=== PATIENT | female | born 1945 | race Caucasian/White ===

== ENCOUNTER 2020-04-02 00:24 | Outpatient (CLI) | payer MEDICARE, SELFPAY ==
[2020-04-02 17:08] LABS: SARS-CoV-2 RNA PCR Negative
== END 2020-04-02 00:25 | disposition home or self-care (01) ==
LOC: ANHCOVIDDT 00:25
PROVIDERS: PCP Internal Medicine; Visit Provider Internal Medicine Gastroenterology
DX: Z01.812 Encounter for preprocedural laboratory examination (principal); Z11.59 Encounter for screening for other viral diseases
CPT/HCPCS: 87635; C9803; U0003

== ENCOUNTER 2020-04-05 01:07 | Day surgery (SDC) | payer MEDICARE, SELFPAY ==
[2020-03-24 14:02] VITALS: BMI 26.4
[2020-04-05 09:46] VITALS: BP 147/87; PULSE 88; RESP 16; TEMP 37; O2SAT 98
--- NOTE | 2020-04-05 10:00 | P.HP_ITS ---
History of Present Illness History of Present Illness Consent: Risks, benefits, and alternatives have been discussed and questions answered. Patient agrees to proceed with procedure. Chief complaint: Neoplasm Screening Narrative: Kaye Erazo is a 75 year old W female referred for screening colonoscopy. Patient is asymptomatic. Last colonoscopy was 10 years ago. No family history of colon cancer. [facility], [facility] Past Medical History Medical History (Updated 04/05/20 @ 10:00 by Zain Jason MD) Dyslipidemia Surgical History Surgical History (Updated 04/05/20 @ 10:01 by Zain Jason MD) H/O total hysterectomy with bilateral salpingo-oophorectomy (BSO) History of tonsillectomy and adenoidectomy Hx of cholecystectomy Social History Social History Smoking status: Never smoker Living arrangements: with family Gender identity (if verbalized by the patient): Female Spiritual care concerns: No Meds Home Medications and Allergies Home Medications Medication Instructions Recorded Confirmed Type fexofenadine [Rosario Allergy] 180 mg PO DAILY 03/24/20 04/05/20 History lactobacillus combination no.8 3 cell PO DAILY 03/24/20 04/05/20 History [Adult Probiotic] montelukast 10 mg PO DAILY 03/24/20 04/05/20 History omeprazole 20 mg PO DAILY 03/24/20 04/05/20 History pravastatin 40 mg PO DAILY 03/24/20 04/05/20 History sertraline 50 mg PO DAILY 03/24/20 04/05/20 History Allergies Allergy/AdvReac Type Severity Reaction Status Date / Time tetracycline Allergy Swelling Verified 04/05/20 09:45 Vital Signs Vital Signs - 24 hr 04/05/20 09:46 Temperature 37.0 C Pulse Rate 88 Respiratory Rate 16 Blood Pressure 147/87 H Pulse Oximetry 98 Exam Const: Orientation/consciousness: patient oriented x3 Resp: Auscultation: clear to auscultation bilaterally Cardio: Rate: regular rate Rhythm: regular rhythm Heart sounds: no murmurs GI: GI Palp: Yes Soft to palpation, No Tenderness to palpation present (GI), Yes No hepatosplenomegaly present and No Palpable mass present Auscultation: normal bowel sounds Neuro: General: patient oriented x3 and no focal motor deficits Extrem: General: no pedal edema Assessment and Plan Additional Plan screening colonoscopy in average risk patient
[2020-04-05] MEDS: LACTATED RINGERS 1,000 ML 150 ML IV CONT (10:06)
--- NOTE | 2020-04-05 10:08 | WPDANESEPPF ---
Anes - Initial Pre Proc Eval Procedure: Operation Date: 04/05/20 11:00 Proposed Procedures p Screening Colonoscopy - Zain Jason MD Date/Time: 04/05/20 10:08 Surgeon: Zain Jason MD Pre Op Diagnosis: Neoplasm Screening Patient Data Age: 75 Gender: F Height: 5 ft 4 in Weight: 70.7 kg Last Vital Signs Temp 98.6 F 04/05/20 09:46 Pulse 88 04/05/20 09:46 Resp 16 04/05/20 09:46 BP 147/87 H 04/05/20 09:46 Pulse Ox 98 04/05/20 09:46 Allergies Allergy/AdvReac Type Severity Reaction Status Date / Time tetracycline Allergy Swelling Verified 04/05/20 09:45 Home Medications Medication Instructions Recorded Confirmed Type fexofenadine [Rosario Allergy] 180 mg PO DAILY 03/24/20 04/05/20 History lactobacillus combination no.8 3 cell PO DAILY 03/24/20 04/05/20 History [Adult Probiotic] montelukast 10 mg PO DAILY 03/24/20 04/05/20 History omeprazole 20 mg PO DAILY 03/24/20 04/05/20 History pravastatin 40 mg PO DAILY 03/24/20 04/05/20 History sertraline 50 mg PO DAILY 03/24/20 04/05/20 History Patient hx anesthesia problems: none Family hx anesthesia problems: none PMFSH Past Medical History Medical History (Updated 04/05/20 @ 10:08 by Mega Chen MD) Anxiety Dyslipidemia Surgical History Surgical History (Updated 04/05/20 @ 10:01 by Zain Jason MD) H/O total hysterectomy with bilateral salpingo-oophorectomy (BSO) History of tonsillectomy and adenoidectomy Hx of cholecystectomy Social History Social History Smoking status: Never smoker Living arrangements: with family Gender identity (if verbalized by the patient): Female Spiritual care concerns: No Anes - Eval Final PreProcedure Day of Procedure 04/05/20 10:08 Patient weight: normal Heart: regular rate and rhythm Lungs: clear to auscultation Airway: Mallampati scale class II Neurological: alert and oriented Last oral intake: >/= 8 hours ASA classification: II Emergent: no Anesthetic plan: proceed Anesthesia type and monitoring: general GIVS and standard monitoring Informed Consent: The patient's anesthetic plan and its attendant risks and benefits were discussed with the patient/family/POA. Questions were solicited and answers provided to the satisfaction of the patient/family/POA.
[2020-04-05] MEDS: SIMETHICONE ORAL SUSPENSION 20 MG/0.3 ML 30 ML BOTTLE 0.6 ML IRRIGATION (11:54)
[2020-04-05 12:00] VITALS: BP 115/63; PULSE 67; RESP 16; O2SAT 98
[2020-04-05 12:10] VITALS: BP 103/77; PULSE 69; RESP 17; O2SAT 98
[2020-04-05 12:20] VITALS: BP 114/76; PULSE 70; RESP 17; O2SAT 98
== END 2020-04-05 13:15 | disposition home or self-care (01) ==
PROVIDERS: PCP Internal Medicine; Visit Provider Internal Medicine Gastroenterology
PROC: 0DJD8ZZ Inspection of Lower Intestinal Tract, Via Natural or Artificial Opening Endoscopic (ICD-10-PCS; CPT 45378; principal; 2020-04-05 11:00)
DX: Z12.11 Encounter for screening for malignant neoplasm of colon (principal); K63.5 Polyp of colon; K57.30 Diverticulosis of large intestine without perforation or abscess without bleeding; K64.8 Other hemorrhoids; K64.4 Residual hemorrhoidal skin tags; E78.5 Hyperlipidemia, unspecified; F41.9 Anxiety disorder, unspecified
CPT/HCPCS: 45385; 88305; J2704; J7120

== ENCOUNTER 2020-05-15 08:26 | Outpatient (CLI) | payer MEDICARE, SELFPAY ==
--- NOTE | ~2020-05-15 | MM_ITS ---
EXAMINATION: MM screening uli BI w romeo HISTORY: Screening TECHNIQUE: Craniocaudal and mediolateral oblique 3-D tomosynthesis images were obtained and synthetic 2-D images were generated. CAD analysis was submitted and interpreted. COMPARISON: Comparison to multiple prior studies sequentially, with oldest reviewed study dated 03/09. BREAST PARENCHYMAL COMPOSITION: There are scattered areas of fibroglandular density. FINDINGS: There is no evidence of suspicious mass, calcification, or architectural distortion to sugg est malignancy in either breast. There has been no suspicious interval change. IMPRESSION: 1. No mammographic evidence of malignancy. 2. Recommend routine screening mammography in one year. BI-RADS Category 1: Negative Reviewed, dictated and finalized at location A. [facility]
== END 2020-05-15 08:27 | disposition home or self-care (01) ==
LOC: ANHIMG 08:30
PROVIDERS: PCP Internal Medicine; Visit Provider Internal Medicine
DX: Z12.31 Encounter for screening mammogram for malignant neoplasm of breast (principal)
CPT/HCPCS: 77063; 77067

== ENCOUNTER 2021-11-09 00:52 | Day surgery (SDC) | payer MEDICARE, SELFPAY ==
[2021-10-27 13:06] VITALS: BMI 27.2
--- NOTE | 2021-11-08 17:09 | PM.HPGS ---
History of Present Illness History of Present Illness Consent: Risks, benefits, and alternatives have been discussed and questions answered. Patient agrees to proceed with procedure. Chief complaint: hx of colon polyps Narrative: Kaye Erazo is a 76 year old female Referred for colon cancer screening. She has a history of polyps having had 2 polyps removed about 2 years ago, 1 of which apparently had dysplastic changes. Review of Systems Review of Systems: All systems reviewed & are unremarkable except as noted in HPI and below PMFSH Past Medical History Medical History Anxiety Dyslipidemia Surgical History Surgical History H/O total hysterectomy with bilateral salpingo-oophorectomy (BSO) History of tonsillectomy and adenoidectomy Hx of cholecystectomy Social History Social History Smoking status: Never smoker Alcohol intake: current Alcohol use details: occasional Living arrangements: with family Gender identity (if verbalized by the patient): Female Spiritual care concerns: No Meds Home Medications and Allergies Home Medications Medication Instructions Recorded Confirmed Type omeprazole 20 mg PO DAILY 03/24/20 10/27/21 History pravastatin 40 mg PO DAILY 03/24/20 10/27/21 History sertraline 50 mg PO DAILY 03/24/20 10/27/21 History cetirizine 10 mg PO DAILY 10/27/21 10/27/21 History multivitamin [Daily Multivitamin] 1 tablet PO DAILY 10/27/21 10/27/21 History Allergies Allergy/AdvReac Type Severity Reaction Status Date / Time tetracycline Allergy Swelling Verified 11/09/21 09:56 Exam Resp: Auscultation: clear to auscultation bilaterally Cardio: Rate: regular rate Rhythm: regular rhythm GI: GI Palp: Yes Soft to palpation and No Tenderness to palpation present (GI) Assessment and Plan Assessment and plan (1) Colon cancer screening: Code(s): Z12.11 - Encounter for screening for malignant neoplasm of colon Status: Acute Assessment and Plan: Colonoscopy with possible biopsy or polypectomy or cautery or injection of substances.
[2021-11-09 09:58] VITALS: BP 145/87; PULSE 100; RESP 18; TEMP 36.5; O2SAT 98
[2021-11-09] MEDS: LACTATED RINGERS 1,000 ML 150 ML IV CONT (10:23)
--- NOTE | 2021-11-09 11:02 | WPDANESEPPF ---
Anes - Initial Pre Proc Eval Procedure: Operation Date: 11/09/21 11:15 Proposed Procedures p Screening Colonoscopy - Gary Arellano MD Date/Time: 11/09/21 11:02 Surgeon: Gary Arellano MD Pre Op Diagnosis: hx of colon polyps Patient Data Age: 76 Gender: F Height: 1.63 m Weight: 71 kg Last Vital Signs Temp 97.7 F 11/09/21 09:58 Pulse 100 11/09/21 09:58 Resp 18 11/09/21 09:58 BP 145/87 H 11/09/21 09:58 Pulse Ox 98 11/09/21 09:58 Allergies Allergy/AdvReac Type Severity Reaction Status Date / Time tetracycline Allergy Swelling Verified 11/09/21 09:56 Home Medications Medication Instructions Recorded Confirmed Type omeprazole 20 mg PO DAILY 03/24/20 10/27/21 History pravastatin 40 mg PO DAILY 03/24/20 10/27/21 History sertraline 50 mg PO DAILY 03/24/20 10/27/21 History cetirizine 10 mg PO DAILY 10/27/21 10/27/21 History multivitamin [Daily Multivitamin] 1 tablet PO DAILY 10/27/21 10/27/21 History Patient hx anesthesia problems: none Family hx anesthesia problems: none Results Review: All pre-operative results and documents have been reviewed as part of the pre-operative evaluation. [facility] Past Medical History Medical History Anxiety Dyslipidemia Surgical History Surgical History H/O total hysterectomy with bilateral salpingo-oophorectomy (BSO) History of tonsillectomy and adenoidectomy Hx of cholecystectomy Social History Social History Smoking status: Never smoker Alcohol intake: current Alcohol use details: occasional Living arrangements: with family Gender identity (if verbalized by the patient): Female Spiritual care concerns: No Anes - Eval Final PreProcedure Day of Procedure 11/09/21 11:02 Patient weight: overweight Heart: regular rate and rhythm Lungs: clear to auscultation Airway: Mallampati scale class II Neurological: alert and oriented Last oral intake: >/= 8 hours ASA classification: II Emergent: no Anesthetic plan: proceed Anesthesia type and monitoring: general GIVS and standard monitoring Results Review: All pre-operative results and documents have been reviewed as part of the pre-operative evaluation. Informed Consent: The patient's anesthetic plan and its attendant risks and benefits were discussed with the patient/family/POA. Questions were solicited and answers provided to the satisfaction of the patient/family/POA.
[2021-11-09 11:22] VITALS: BP 106/58; PULSE 70; RESP 18; O2SAT 98
[2021-11-09 11:32] VITALS: BP 110/68; PULSE 72; RESP 20; O2SAT 98
[2021-11-09 11:42] VITALS: BP 117/67; PULSE 66; RESP 18; O2SAT 99
== END 2021-11-09 11:53 | disposition home or self-care (01) ==
PROVIDERS: PCP Internal Medicine; Visit Provider Internal Medicine Gastroenterology
PROC: 0DJD8ZZ Inspection of Lower Intestinal Tract, Via Natural or Artificial Opening Endoscopic (ICD-10-PCS; CPT 45378; principal; 2021-11-09 11:15)
DX: Z12.11 Encounter for screening for malignant neoplasm of colon (principal); K64.8 Other hemorrhoids; K57.30 Diverticulosis of large intestine without perforation or abscess without bleeding; Z86.010 Personal history of colon polyps; E78.5 Hyperlipidemia, unspecified; F41.9 Anxiety disorder, unspecified
CPT/HCPCS: G0105; J2704; J7120

== ENCOUNTER 2021-11-22 10:02 | Outpatient (CLI) | payer MEDICARE, SELFPAY ==
--- NOTE | ~2021-11-22 | MM_ITS ---
EXAMINATION: MM screening uli BI w romeo HISTORY: Screening TECHNIQUE: Craniocaudal and mediolateral oblique 3-D tomosynthesis images were obtained and synthetic 2-D images were generated. CAD analysis was submitted and interpreted. COMPARISON: Comparison to multiple prior studies sequentially, with oldest reviewed study dated 03/25. BREAST PARENCHYMAL COMPOSITION: The breasts are almost entirely fatty. FINDINGS: There is no evidence of suspicious mass, calcification, or architectural distortion to sugg est malignancy in either breast. There has been no suspicious interval change. IMPRESSION: 1. No mammographic evidence of malignancy. 2. Recommend routine screening mammography in one year. BI-RADS Category 1: Negative Reviewed, dictated and finalized at location A.
== END 2021-11-22 10:03 | disposition home or self-care (01) ==
LOC: ANHIMG 10:04
PROVIDERS: PCP Internal Medicine; Visit Provider Internal Medicine
DX: Z12.31 Encounter for screening mammogram for malignant neoplasm of breast (principal)
CPT/HCPCS: 77063; 77067

== ENCOUNTER 2023-01-09 08:44 | Outpatient (CLI) | payer MEDICARE, SELFPAY ==
--- NOTE | ~2023-01-09 | MM_ITS ---
EXAMINATION: MM screening [facility] BI w romeo HISTORY: Screening mammogram TECHNIQUE: Craniocaudal and mediolateral oblique 3-D tomosynthesis images were obtained and synthetic 2-D images were generated. CAD analysis was submitted and interpreted. COMPARISON: Serial mammograms dating back to 04/29/2019 BREAST PARENCHYMAL COMPOSITION: The breasts are almost entirely fatty. FINDINGS: Stable bilateral small circumscribed axillary tail lymph nodes. There is no evidence of danelle picious mass, calcification, or architectural distortion to suggest malignancy in either breast. Ther e has been no suspicious interval change. IMPRESSION: 1. No mammographic evidence of malignancy. 2. Recommend routine screening mammography in one year. BI-RADS Category 1: Negative Reviewed, dictated and finalized at location A.
== END 2023-01-09 08:45 | disposition home or self-care (01) ==
PROVIDERS: PCP Internal Medicine; Visit Provider Internal Medicine
DX: Z12.31 Encounter for screening mammogram for malignant neoplasm of breast (principal)
CPT/HCPCS: 77063; 77067

== ENCOUNTER 2023-01-19 12:48 | Outpatient (CLI) | payer MEDICARE, SELFPAY ==
--- NOTE | ~2023-01-19 | DEXA_ITS ---
Bone Density Report Name: MALI ROGERS Age: 77 Sex: Female Ethnicity: White Date of : 1945 Indication: postmenopausal; screening for osteoporosis; height loss; hysterectomy; Referring Provider: ZANDER, JOVANI Pierce Study: Bone densitometry was performed. Exam Date: January 19, 2023 Accession number: [id number] Bone Density: Region BMD T-score Z-score Classification AP Spine(L1-L4) 1.017 -0.3 2.3 Normal Femoral Neck (Left) 0.699 -1.3 0.9 Osteopenia Total Hip (Left) 0.793 -1.2 0.7 Osteopenia Femoral Neck (Right) 0.637 -1.9 0.3 Osteopenia Total Hip (Right) 0.796 -1.2 0.7 Osteopenia Total Hip Mean 0.794 -1.2 0.7 Osteopenia World Health Organization criteria for BMD impression classify patients as: Normal (T-score at or above -1.0), Osteopenia (T-score between -1.0 and -2.5), or Osteoporosis (T-score at or below -2.5). 10-year Fracture Risk(1): Major Osteoporotic Fracture 14% Hip Fracture 3.5% Reported Risk Factors: [place] (), Neck BMD=0.637, BMI=29.2 (1) FRAX(R) Version 3.08. Fracture probability calculated for an untreated patient. Fracture probability may be lower if the patient has received treatment. Clinical Information Provided by Patient: Has used the following medications: Vitamin D, Calcium Has the following medical conditions: Hysterectomy Patient maximum height was 64 Menopause Age: 30 No regular weight bearing exercise Does not regularly consume dairy products Drinks caffeinated beverages Onset of menses at age 13 Number of children 1 Impression: The patient has low bone mass, based on the Right Femoral Neck T-score. The patient has an estimated ten-year risk of hip fracture of 3.5% and an estimated ten-year risk of major fracture of 14%, based on the WHO FRAX algorithm. Discussion: BONE DENSITY IS LOW AT ONE OR MORE SKELETAL SITES. THE PATIENT'S BMD AND CLINICAL RISK FACTORS CONTRIBUTE TO THIS PATIENT'S INCREASED RISK OF FRACTURE. This patient's lowest T-score is low at one or more skeletal sites. It meets the World Health Organization's (WHO) criteria for ?low bone mass? (T-score between -1.0 and -2.5). The patient's 10-year risk of hip fracture as calculated by FRAX exceeds the threshold where pharmacological therapy is recommended by the National Osteoporosis Foundation (NOF). However, all treatment decisions require clinical judgment and consideration of individual patient factors, including patient preferences, comorbidities, previous drug use, risk factors not captured in the FRAX model (e.g., frailty, falls, vitamin D deficiency, increased bone turnover, interval significant decline in bone density) and possible under or overestimation of fracture risk by FRAX. The patient should follow a healthful lifestyle (good nutrition with adequate calc
== END 2023-01-19 12:49 | disposition home or self-care (01) ==
LOC: ANHIMG 12:49
PROVIDERS: PCP Internal Medicine; Visit Provider Nurse Practitioner
DX: Z13.820 Encounter for screening for osteoporosis (principal); Z78.0 Asymptomatic menopausal state; M85.852 Other specified disorders of bone density and structure, left thigh; M85.851 Other specified disorders of bone density and structure, right thigh
CPT/HCPCS: 77080

== ENCOUNTER 2024-02-25 14:00 | Outpatient (CLI) | payer MEDICARE, SELFPAY ==
--- NOTE | ~2024-02-25 | MM_ITS ---
EXAMINATION: MM screening uli BI w romeo HISTORY: Screening TECHNIQUE: Craniocaudal and mediolateral oblique 3-D tomosynthesis images were obtained and synthetic 2-D images were generated. CAD analysis was submitted and interpreted. COMPARISON: Comparison to multiple prior studies sequentially, with oldest reviewed study dated 04/12. BREAST PARENCHYMAL COMPOSITION: There are scattered areas of fibroglandular density. FINDINGS: There is no evidence of suspicious mass, calcification, or architectural distortion to sugg est malignancy in either breast. There has been no suspicious interval change. IMPRESSION: 1. No mammographic evidence of malignancy. 2. Recommend routine screening mammography in one year. BI-RADS Category 1: Negative Reviewed, dictated and finalized at location B.
== END 2024-02-25 14:01 ==
PROVIDERS: PCP Internal Medicine; Visit Provider Internal Medicine
DX: Z12.31 Encounter for screening mammogram for malignant neoplasm of breast (principal)
CPT/HCPCS: 77063; 77067

== ENCOUNTER 2025-02-13 14:51 | Outpatient (CLI) | payer MEDICARE, SELFPAY ==
--- NOTE | ~2025-02-13 | DEXA_ITS ---
Bone Density Report Name: MALI ROGERS Age: 79 Sex: Female Ethnicity: White Date of : 1945 Indication: osteopenia; height loss; hysterectomy; Referring Provider: ZANDER, JOVANI Pierce Study: Bone densitometry was performed. Exam Date: February 13, 2025 Accession number: [id number] Bone Density: Region BMD T-score Z-score Classification AP Spine(L1-L4) 0.952 -0.9 1.8 Normal Femoral Neck (Left) 0.715 -1.2 1.1 Osteopenia Total Hip (Left) 0.804 -1.1 0.9 Osteopenia Femoral Neck (Right) 0.674 -1.6 0.7 Osteopenia Total Hip (Right) 0.805 -1.1 0.9 Osteopenia Total Hip Mean 0.805 -1.1 0.9 Osteopenia World Health Organization criteria for BMD impression classify patients as: Normal (T-score at or above -1.0), Osteopenia (T-score between -1.0 and -2.5), or Osteoporosis (T-score at or below -2.5). 10-year Fracture Risk(1): Major Osteoporotic Fracture 13% Hip Fracture 3.1% Reported Risk Factors: [place] (), Neck BMD=0.674, BMI=29.8 (1) FRAX(R) Version 3.08. Fracture probability calculated for an untreated patient. Fracture probability may be lower if the patient has received treatment. Previous Exams: -- Region Exam Age BMD T-score BMD Change BMD Change Date g/cm2 vs Baseline vs Previous -- AP Spine (L1-L4) 02/13/2025 79 0.952 -0.9 -2.5%* -6.4%* 01/19/2023 77 1.017 -0.3 4.2%* 4.2%* 05/07/2019 74 0.976 -0.6 Total Hip(Left) 02/13/2025 79 0.804 -1.1 2.0% 1.3% 01/19/2023 77 0.793 -1.2 0.7% 0.7% 05/07/2019 74 0.788 -1.3 Total Hip(Right) 02/13/2025 79 0.805 -1.1 1.9% 1.2% 01/19/2023 77 0.796 -1.2 0.6% 0.6% 05/07/2019 74 0.791 -1.2 -- *Denotes significance at 95% confidence level, LSC for AP Spine = 0.022 g/cm2, LSC for Total Hip = 0.027 g/cm2 Clinical Information Provided by Patient: Has used the following medications: Fosamax (i.e. alendronate) Has the following medical conditions: Hysterectomy Patient maximum height was 64 Menopause Age: 30 No regular weight bearing exercise Onset of menses at age 12 Number of children 1 Impression: The patient has low bone mass, based on the Right Femoral Neck T-score. The patient has an estimated ten-year risk of hip fracture of 3.1% and an estimated ten-year risk of major fracture of 13%, based on the WHO FRAX algorithm. The BMD for the AP Spine (L1-L4) decreased, changing by -6.4% since the last DXA exam. Discussion: BONE DENSITY IS LOW AT ONE OR MORE SKELETAL SITES. THE PATIENT'S BMD AND CLINICAL RISK FACTORS CONTRIBUTE TO THIS PATIENT'S INCREASED RISK OF FRACTURE. This patient's lowest T-score is low at one or more skeletal sites. It meets the World Health Organization's (WHO) criteria for ?low bone mass? (T-score between -1.0 and -2.5). The patient's 10-year risk of hip fracture as calculated by FRAX exceeds the threshold where pharmacological therapy is recommended by the National Osteoporosis Foundation (NOF). However, all treatment decisions require clinical judgment and consideration of individual patient factors, including patient preferences, comorbidities, previous drug use, risk factors not captured in the FRAX model (e.g., frailty, falls, vitamin D deficiency, increased bone turnover, interval significant decline in bone density) and possible under or overestimation of fracture risk by FRAX. The patient should follow a healthful lifestyle (good nutrition with adequate calcium and vitamin D, and appropriate weight-bearing exercise). Follow-Up: Consider a repeat BMD and Vertebral Fracture Assessment (VFA) exam in 2 years or sooner if medically necessary, to reassess this patient's status. Reported by: JOSÉ MIGUEL on 02/13/2025 3:17:00 PM. Reviewed, dictated and finalized at location A.
== END 2025-02-13 14:52 | disposition home or self-care (01) ==
PROVIDERS: PCP Internal Medicine; Visit Provider Nurse Practitioner
DX: M85.89 Other specified disorders of bone density and structure, multiple sites (principal); Z13.820 Encounter for screening for osteoporosis; Z12.31 Encounter for screening mammogram for malignant neoplasm of breast
CPT/HCPCS: 77080

== ENCOUNTER 2025-02-27 11:16 | Outpatient (CLI) | payer MEDICARE, SELFPAY ==
--- NOTE | ~2025-02-27 | MM_ITS ---
EXAMINATION: MM screening uli BI w romeo HISTORY: Screening TECHNIQUE: Craniocaudal and mediolateral oblique 3-D tomosynthesis images were obtained and synthetic 2-D images were generated. CAD analysis was submitted and interpreted. COMPARISON: Comparison to multiple prior studies sequentially, with oldest reviewed study dated 09/2017. BREAST PARENCHYMAL COMPOSITION: Not Dense: The breasts are almost entirely fatty. FINDINGS: There is no evidence of suspicious mass, calcification, or architectural distortion to sugg est malignancy in either breast. There has been no suspicious interval change. IMPRESSION: 1. No mammographic evidence of malignancy. 2. Recommend routine screening mammography in one year. BI-RADS Category 1: Negative Reviewed, dictated and finalized at location A.
== END 2025-02-27 11:17 | disposition home or self-care (01) ==
LOC: MICIMG 11:16
PROVIDERS: PCP Internal Medicine; Visit Provider Internal Medicine
DX: Z12.31 Encounter for screening mammogram for malignant neoplasm of breast (principal)
CPT/HCPCS: 77063; 77067